=== PATIENT | male | born 1990 | race Caucasian/White ===

== ENCOUNTER 2019-03-07 19:33 | Emergency (ER) | payer OTHER ==
[~2019-03-07] VITALS: Ht 175.3 cm; Wt 63.0 kg
--- NOTE | 2019-03-07 19:50 | NUR ---
Gave Primary RN, URIAH Morgan on Patient. Low Glucose level reported to MD and Pt given OJ to drink. Pt refusing food at this time. Pt GCS 15 and A&Ox4. EKG completed, Labs drawn. Pt received 1L NS by EMS. Pt has no complaints at this time.
[2019-03-07] MEDS ORDERED: normal saline 1000ML IV soln IVB ONE (20:15)
[2019-03-07 20:25] VITALS: BP 126/80
--- NOTE | 2019-03-07 20:26 | NUR ---
assisting RN with pt care, pt is resting quietly on gurney, resp even and unlabored, talking on phone with family, has a ride home
[2019-03-07 20:31] LABS: EOSINOPHILS # (AUTO) 0.1 X10'3 (0-0.9); MEAN CORPUSCULAR HEMOGLOBIN 32.9 PG (27.0-31.0); MEAN PLATELET VOLUME 8.7 FL (7.4-10.4); MONOCYTES # (AUTO) 0.6 X10'3 (0-0.9)
[2019-03-07 20:33] LABS: ALANINE AMINOTRANSFERASE 40 U/L (12-78); ALBUMIN 3.6 G/DL (3.4-5.0); ALBUMIN/GLOBULIN RATIO 1.1 (1.1-1.5); ALKALINE PHOSPHATASE 62 IU/L (46-116); ANION GAP 12 (8-16); ASPARTATE AMINO TRANSFERASE 38 U/L (10-37); BASOPHILS % (AUTO) 0.5 % (0-1); BILIRUBIN,TOTAL 0.5 MG/DL (0.1-1.0); BLOOD UREA NITROGEN 11 MG/DL (7-18); BUN/CREATININE RATIO 11.7 (5.4-32.0); CALCIUM 7.9 MG/DL (8.5-10.1); CHLORIDE 106 MMOL/L (99-107); CREATININE 0.94 MG/DL (0.60-1.10); EOSINOPHILS % (AUTO) 1.5 % (0-6); GLUCOSE 84 MG/DL (70-104); HEMATOCRIT 46.2 % (42.0-52.0); HEMOGLOBIN 16.2 g/dl (14.0-17.9); LYMPHOCYTES # (AUTO) 2.4 X10'3 (1.1-4.8); LYMPHOCYTES % (AUTO) 35.8 % (21-51); MEAN CORPUSCULAR HGB CONC 35.1 g/dL (33.0-36.5); MEAN CORPUSCULAR VOLUME 93.8 FL (78-98); MONOCYTES % (AUTO) 8.2 % (2-12); NEUTROPHILS # (AUTO) 3.7 X10'3 (1.8-7.7); PLATELET COUNT 142 X10'3 (140-440); POTASSIUM 3.4 MMOL/L (3.5-5.1); RED BLOOD COUNT 4.93 X10'6 (4.70-6.10); RED CELL DISTRIBUTION WIDTH 12.6 % (11.5-14.5); SODIUM 141 MMOL/L (135-145); TOTAL CARBON DIOXIDE 22.6 MMOL/L (24-32); WHITE BLOOD COUNT 6.8 X10'3 (4.5-11.0); eGFR > 90 ML/MIN
== END 2019-03-07 20:58 | disposition home or self-care (01) ==
LOC: ER 19:34
DX: T40.2X1A Poisoning by other opioids, accidental (unintentional), initial encounter (principal); T40.601A Poisoning by unspecified narcotics, accidental (unintentional), initial encounter; R00.0 Tachycardia, unspecified; Y92.89 Other specified places as the place of occurrence of the external cause
CPT/HCPCS: 36415; 71045; 80053; 82948; 83735; 84484; 85025; 93005; 99284; J7030